=== PATIENT | female | born 2000 | race Caucasian/White ===

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

== ENCOUNTER 2019-08-13 15:21 | Emergency (ER) | payer MEDICAID, OTHER ==
[2019-08-13] MEDS ORDERED: KETOROLAC TROMETHAMINE INJ/PF 30 MG/1 ML SDV IV ONE (16:20)
[2019-08-13] MEDS ORDERED: CAPSAICIN HP 0.075% CREAM 60 GM TP ONE (16:20)
[2019-08-13] MEDS ORDERED: NORMAL SALINE 1000 ML 1,000 ML IV ONE (16:20)
[2019-08-13] MEDS ORDERED: METOCLOPRAMIDE HCL INJ/PF 10 MG/2 ML SDV IV ONE (16:20)
--- NOTE | 2019-08-13 16:22 | ER Document Report ---
ED Medical Screen (RME) - General Chief Complaint: Abdominal Pain Stated Complaint: ABDOMINAL PAIN Time Seen by Provider: 08/13/19 16:15 Mode of Arrival: Wheelchair Information source: Patient Notes: 19-year-old female with history of cannabis hyperemesis presents to the emergency department with same symptoms. Patient reports her back is hurting her as well as her stomach. Patient reports she is still smoking marijuana but not as much. Denies fever. Patient looks extremely uncomfortable. I have greeted and performed a rapid initial assessment of this patient. A comprehensive ED assessment and evaluation of the patient, analysis of test results and completion of the medical decision making process will be conducted by additional ED providers. TRAVEL OUTSIDE OF THE [place] IN LAST 30 DAYS: No - Related Data Allergies/Adverse Reactions: haloperidol [From Haldol] Allergy (Verified 02/26/19 11:30) Past Medical History - Social History Chew tobacco use (# tins/day): No Drug Abuse: Marijuana Neurological Medical History: Reports: Hx Seizures - WITH HALDOL WHEN GIVEN IN ER Renal/ Medical History: Denies: Hx Peritoneal Dialysis GI Medical History: Reports: Hx Gastroesophageal Reflux Disease, Hx Irritable Bowel, Hx Ulcer Psychiatric Medical History: Reports: Hx Anxiety, Hx Depression Past Surgical History: Reports: Hx Cholecystectomy, Other - Upper GI scope-2 esophogeal ulcerations measuring >5mm. Denies: Hx Hysterectomy - Immunizations Immunizations up to date: Yes Hx Diphtheria, Pertussis, Tetanus Vaccination: Yes Physical Exam - Vital signs Vitals: Temp Pulse Resp BP Pulse Ox 98.3 F 83 22 H 126/78 H 100 08/13/19 15:35 08/13/19 15:35 08/13/19 15:35 08/13/19 15:35 08/13/19 15:35 Course - Vital Signs Vital signs: Temp Pulse Resp BP Pulse Ox 98.3 F 83 22 H 126/78 H 100 08/13/19 15:35 08/13/19 15:35 08/13/19 15:35 08/13/19 15:35 08/13/19 15:35
[2019-08-13] MEDS ORDERED: CAPSAICIN 0.025% CREAM 60 GM TP ONE (16:54)
[2019-08-13 17:09] LABS: ABSOLUTE LYMPHOCYTES (AUTO) 0.8 10^3/uL (0.5-4.7); ABSOLUTE MONOCYTES (AUTO) 0.3 10^3/uL (0.1-1.4); ABSOLUTE NEUT (AUTO) 13.5 10^3/uL (1.7-8.2); BASOPHILS % (AUTO) 0.2 % (0-2); HEMOGLOBIN 13.1 g/dL (12.0-15.5); LYMPHOCYTES % (AUTO) 5.6 % (13-45); MEAN CORPUSCULAR HEMOGLOBIN 27.7 pg (27.0-33.4); MEAN CORPUSCULAR HGB CONC 33.6 g/dL (32.0-36.0); MEAN CORPUSCULAR VOLUME 83 fl (80-97); MONOCYTES % (AUTO) 2.4 % (3-13); PLATELET COUNT 298 10^3/uL (150-450); RED BLOOD COUNT 4.73 10^6/uL (3.72-5.28); RED CELL DISTRIBUTION WIDTH 15.4 % (11.5-14.0); SEGMENTED NEUTROPHILS % (AUTO) 91.8 % (42-78); TOTAL CELLS COUNTED % (AUTO) 100 %; WHITE BLOOD COUNT 14.7 10^3/uL (4.0-10.5)
[2019-08-13 17:31] LABS: ALBUMIN 4.5 g/dL (3.5-5.0); ALKALINE PHOSPHATASE 92 U/L (38-126); ANION GAP 12 (5-19); ASPARTATE AMINO TRANSFERASE 24 U/L (14-36); BILIRUBIN,DIRECT 0.1 mg/dL (0.0-0.4); BILIRUBIN,TOTAL 0.2 mg/dL (0.2-1.3); BLOOD UREA NITROGEN 4 mg/dL (7-20); CALCIUM 10.2 mg/dL (8.4-10.2); CARBON DIOXIDE 25 mmol/L (22-30); CHLORIDE 103 mmol/L (98-107); GLUCOSE 110 mg/dL (75-110); POTASSIUM 3.5 mmol/L (3.6-5.0); TOTAL PROTEIN 7.8 g/dL (6.3-8.2)
[2019-08-13 18:03] LABS: APPEARANCE,URINE CLEAR; BILIRUBIN,URINE NEGATIVE (NEGATIVE); COLOR,URINE STRAW; GLUCOSE, URINE NEGATIVE (NEGATIVE); KETONES,URINE NEGATIVE (NEGATIVE); LEUKOCYTE ESTERASE,URINE NEGATIVE (NEGATIVE); NITRITE,URINE NEGATIVE (NEGATIVE); PROTEIN,URINE NEGATIVE (NEGATIVE); URINE SPECIFIC GRAVITY 1.003; UROBILINOGEN,URINE NEGATIVE mg/dL (<2.0)
--- NOTE | 2019-08-13 19:03 | ER Document Report ---
HPI - HPI Time Seen by Provider: 08/13/19 16:15 Pain Level: Denies Notes: 19-year-old female with history of cannabis hyperemesis presents to the emergency department with same symptoms. Patient reports her back is hurting her as well as her stomach. Patient reports she is still smoking marijuana but not as much. Denies fever. - REPRODUCTIVE Reproductive: DENIES: : Past Medical History - General Information source: Patient - Social History Smoking Status: Never Smoker Chew tobacco use (# tins/day): No Drug Abuse: Marijuana Family History: Reviewed & Not Pertinent, Other - Obesity, diabetes, fatty liver disease, gallbladder disease. Patient has suicidal ideation: No Patient has homicidal ideation: No Neurological Medical History: Reports: Hx Seizures - WITH HALDOL WHEN GIVEN IN ER Renal/ Medical History: Denies: Hx Peritoneal Dialysis GI Medical History: Reports: Hx Gastroesophageal Reflux Disease, Hx Irritable Bowel, Hx Ulcer Psychiatric Medical History: Reports: Hx Anxiety, Hx Depression Past Surgical History: Reports: Hx Cholecystectomy, Other - Upper GI scope-2 esophogeal ulcerations measuring >5mm. Denies: Hx Hysterectomy - Immunizations Immunizations up to date: Yes Hx Diphtheria, Pertussis, Tetanus Vaccination: Yes Vertical Provider Document - CONSTITUTIONAL Notes: PHYSICAL EXAMINATION: GENERAL: Well-appearing, well-nourished and in no acute distress. HEAD: Atraumatic, normocephalic. EYES: Pupils equal round and reactive to light, extraocular movements intact, conjunctiva are normal. ENT: Nares patent, oropharynx clear without exudates. Moist mucous membranes. NECK: Normal range of motion, supple without lymphadenopathy LUNGS: Breath sounds clear to auscultation bilaterally and equal. No wheezes rales or rhonchi. HEART: Regular rate and rhythm without murmurs ABDOMEN: Soft, nontender, nondistended abdomen. No guarding, no rebound. No masses appreciated. Female : deferred Musculoskeletal: Normal range of motion, no pitting or edema. No cyanosis. NEUROLOGICAL: Cranial nerves grossly intact. Normal speech, normal gait. Normal sensory, motor exams PSYCH: Normal mood, normal affect. SKIN: Warm, Dry, normal turgor, no rashes or lesions noted. - INFECTION CONTROL TRAVEL OUTSIDE OF THE [place] IN LAST 30 DAYS: No Course - Re-evaluation Re-evalutation: Laboratory 0108/13/19 08/13/19 16:31 16:31 17:43 WBC 14.7 H RBC 4.73 Hgb 13.1 Hct 39.0 MCV 83 MCH 27.7 MCHC 33.6 RDW 15.4 H Plt Count 298 Lymph % (Auto) 5.6 L [place] % (Auto) 2.4 L Eos % (Auto) 0.0 Baso % (Auto) 0.2 Absolute Neuts (auto) 13.5 H Absolute Lymphs (auto) 0.8 Absolute Monos (auto) 0.3 Absolute Eos (auto) 0.0 Absolute Basos (auto) 0.0 Seg Neutrophils % 91.8 H Sodium 139.6 Potassium 3.5 L Chloride 103 Carbon Dioxide 25 Anion Gap 12 BUN 4 L Creatinine 0.64 Est GFR ( Amer) > 60 Est GFR (MDRD) Non-Af > 60 Glucose 110 Calcium 10.2 Total Bilirubin 0.2 Direct Bilirubin 0.1 Neonat Total Bilirubin Not Reportable Neonat Direct Bilirubin Not Reportable Neonat Indirect Bili Not Reportable AST 24 ALT 16 Alkaline Phosphatase 92 Total Protein 7.8 Albumin 4.5 Urine Color STRAW Urine Appearance CLEAR Urine pH 6.0 Ur Specific [place] 1.003 Urine Protein NEGATIVE Urine Glucose (UA) NEGATIVE Urine Ketones NEGATIVE Urine Blood LARGE H Urine Nitrite NEGATIVE Urine Bilirubin NEGATIVE Urine Urobilinogen NEGATIVE Ur Leukocyte Esterase NEGATIVE Urine WBC (Auto) 2 Urine RBC (Auto) 3 Urine Bacteria (Auto) TRACE Squamous Epi Cells Auto 1 Urine Mucus (Auto) RARE Urine Ascorbic Acid NEGATIVE Urine HCG, Qual NEGATIVE Work-up today has been relatively unremarkable. Patient does have a mildly elevated white blood count however that is likely secondary to vomiting. Tay vaughn has not vomited since she was given antiemetics here in the emergency department. Her abdomen is soft and nontender. Likely vomiting due to hyperemesis cannabinoid syndrome. Patient reports feels much improved after administration of medications and IV fluids today. Patient will be discharged home in stable condition at this time. - Vital Signs Vital signs: Temp Pulse Resp BP Pulse Ox 98.3 F 83 22 H 126/78 H 100 08/13/19 15:35 08/13/19 15:35 08/13/19 15:35 08/13/19 15:35 08/13/19 15:35 - Laboratory Result Diagrams: 08/13/19 16:31 08/13/19 16:31 Laboratory results interpreted by me: 08/13/19 08/13/19 08/13/19 16:31 16:31 17:43 WBC 14.7 H RDW 15.4 H Lymph % (Auto) 5.6 L [place] % (Auto) 2.4 L Absolute Neuts (auto) 13.5 H Seg Neutrophils % 91.8 H Potassium 3.5 L BUN 4 L Urine Blood LARGE H Discharge - Discharge Clinical Impression: Cannabinoid hyperemesis syndrome Condition: Stable Disposition: HOME, SELF-CARE Additional Instructions: You were seen in the emergency department today with an episode of your cannabinoid hyperemesis syndrome. Please stop smoking marijuana. This is the likely culprit of all of your symptoms. Please take antinausea medication as prescribed. Please follow-up with primary care. Prescriptions: Capsaicin [Capzasin Patch] 1 patch TP DAILY #1 pkg Ondansetron [Zofran Odt 4 mg Tablet] 1 - 2 tab PO Q4H PRN #15 tab.rapdis PRN Reason: For Nausea/Vomiting
[2019-08-13 19:18] VITALS: BP 123/63
== END 2019-08-13 19:18 | disposition home or self-care (01) ==
LOC: ER 15:21
DX: F12.188 Cannabis abuse with other cannabis-induced disorder (principal); R11.10 Vomiting, unspecified; M54.9 Dorsalgia, unspecified
CPT/HCPCS: 99284; 96361; 96374; 96375; 36415; 85025; 81025; 80053; 81001; J3490 ×2; J1885; J2765; J7030

== ENCOUNTER 2019-09-09 16:34 | Emergency (ER) | payer MEDICAID, OTHER ==
[2019-09-09] MEDS ORDERED: METOCLOPRAMIDE HCL INJ/PF 10 MG/2 ML SDV IV ONE (17:54)
--- NOTE | 2019-09-09 17:54 | ER Document Report ---
ED Medical Screen (RME) - General Chief Complaint: Abdominal Pain Stated Complaint: ABDOMINAL PAIN Time Seen by Provider: 09/09/19 17:53 TRAVEL OUTSIDE OF THE [place] IN LAST 30 DAYS: No - HPI Notes: 09/09/19 17:53 Patient is a 19-year-old female who presents complaining of acute on chronic mid abdominal pain. Patient states that this is in the same area as it has been for years. Patient states that she has had nausea vomiting. She states that she only comes in when the pain gets intolerable. Pain does not radiate. She is urinating normally. Denies . No fever, chest pain, shortness of breath, diarrhea. I have treated and performed a rapid initial assessment of this patient. A comprehensive ED assessment and evaluation of the patient, analysis of test results and completion of medical decision making process will be conducted by additional ED providers. PHYSICAL EXAMINATION: GENERAL: Well-appearing, well-nourished and in no acute distress. A&Ox4. Answers questions appropriately. - Related Data Allergies/Adverse Reactions: haloperidol [From Haldol] Allergy (Verified 02/26/19 11:30) Past Medical History Neurological Medical History: Reports: Hx Seizures - WITH HALDOL WHEN GIVEN IN ER Renal/ Medical History: Denies: Hx Peritoneal Dialysis GI Medical History: Reports: Hx Gastroesophageal Reflux Disease, Hx Irritable Bowel, Hx Ulcer Psychiatric Medical History: Reports: Hx Anxiety, Hx Depression Past Surgical History: Reports: Hx Cholecystectomy, Other - Upper GI scope-2 esophogeal ulcerations measuring >5mm. Denies: Hx Hysterectomy - Immunizations Immunizations up to date: Yes Hx Diphtheria, Pertussis, Tetanus Vaccination: Yes Physical Exam - Vital signs Vitals: Temp Pulse Resp BP Pulse Ox 98.2 F 86 16 132/70 H 95 09/09/19 17:04 09/09/19 17:04 09/09/19 17:04 09/09/19 17:04 09/09/19 17:04 Course - Vital Signs Vital signs: Temp Pulse Resp BP Pulse Ox 98.2 F 86 16 132/70 H 95 09/09/19 17:04 09/09/19 17:04 09/09/19 17:04 09/09/19 17:04 09/09/19 17:04
[2019-09-09] MEDS: NORMAL SALINE 1000 ML 1,000 ML IV PRN ×2 (18:36→19:36)
[2019-09-09 19:07] LABS: ABSOLUTE LYMPHOCYTES (AUTO) 1.3 10^3/uL (0.5-4.7); ABSOLUTE MONOCYTES (AUTO) 0.5 10^3/uL (0.1-1.4); ABSOLUTE NEUT (AUTO) 7.1 10^3/uL (1.7-8.2); BASOPHILS % (AUTO) 0.2 % (0-2); HEMATOCRIT 39.5 % (36.0-47.0); HEMOGLOBIN 13.4 g/dL (12.0-15.5); LYMPHOCYTES % (AUTO) 14.9 % (13-45); MEAN CORPUSCULAR HEMOGLOBIN 27.7 pg (27.0-33.4); MEAN CORPUSCULAR HGB CONC 33.8 g/dL (32.0-36.0); MEAN CORPUSCULAR VOLUME 82 fl (80-97); MONOCYTES % (AUTO) 5.2 % (3-13); PLATELET COUNT 298 10^3/uL (150-450); RED BLOOD COUNT 4.82 10^6/uL (3.72-5.28); RED CELL DISTRIBUTION WIDTH 15.7 % (11.5-14.0); SEGMENTED NEUTROPHILS % (AUTO) 79.7 % (42-78); TOTAL CELLS COUNTED % (AUTO) 100 %; WHITE BLOOD COUNT 8.9 10^3/uL (4.0-10.5)
[2019-09-09 19:10] LABS: APPEARANCE,URINE CLOUDY; BILIRUBIN,URINE NEGATIVE (NEGATIVE); COLOR,URINE AMBER; GLUCOSE, URINE NEGATIVE (NEGATIVE); KETONES,URINE 20 mg/dL (NEGATIVE); PROTEIN,URINE 100 mg/dL (NEGATIVE); URINE SPECIFIC GRAVITY 1.029
[2019-09-09 19:27] LABS: ALBUMIN 4.2 g/dL (3.5-5.0); ALKALINE PHOSPHATASE 87 U/L (38-126); ANION GAP 11 (5-19); ASPARTATE AMINO TRANSFERASE 27 U/L (14-36); BILIRUBIN,DIRECT 0.2 mg/dL (0.0-0.4); BILIRUBIN,TOTAL 0.4 mg/dL (0.2-1.3); BLOOD UREA NITROGEN 7 mg/dL (7-20); CALCIUM 9.5 mg/dL (8.4-10.2); CARBON DIOXIDE 23 mmol/L (22-30); CHLORIDE 105 mmol/L (98-107); GLUCOSE 103 mg/dL (75-110); POTASSIUM 3.5 mmol/L (3.6-5.0); TOTAL PROTEIN 7.7 g/dL (6.3-8.2)
--- NOTE | 2019-09-09 19:56 | ER Document Report ---
ED General - General Chief Complaint: Abdominal Pain Stated Complaint: ABDOMINAL PAIN Time Seen by Provider: 09/09/19 17:53 Primary Care Provider: FAVIOLA LAYTON PA-C [Primary Care Provider] - Follow up as needed Notes: Patient is a 19-year-old white female with a past medical history significant for chronic abdominal pain who is status post cholecystectomy who presents to the emergency department the chief complaint of acute on chronic abdominal pain. She states it is in the supraumbilical/epigastric region. Describes it as "deep". She states is associated with intermittent nausea vomiting and diarrhea. States her nausea and vomiting are relieved by ODT Zofran. She reports she gets these episodes from time to time. She is unsure why. She denies any fall, injury or trauma. Denies any urinary complaints, vaginal bleeding or discharge. Denies any known fever, chills or night sweats. TRAVEL OUTSIDE OF THE [place] IN LAST 30 DAYS: No - Related Data Allergies/Adverse Reactions: haloperidol [From Haldol] Allergy (Verified 02/26/19 11:30) Home Medications: zofran Past Medical History - Social History Smoking Status: Never Smoker Frequency of alcohol use: None Drug Abuse: None, Marijuana Family History: Reviewed & Not Pertinent, Other - Obesity, diabetes, fatty liver disease, gallbladder disease. Patient has suicidal ideation: No Patient has homicidal ideation: No Neurological Medical History: Reports: Hx Seizures - WITH HALDOL WHEN GIVEN IN ER Renal/ Medical History: Denies: Hx Peritoneal Dialysis GI Medical History: Reports: Hx Gastroesophageal Reflux Disease, Hx Irritable Bowel, Hx Ulcer Psychiatric Medical History: Reports: Hx Anxiety, Hx Depression Past Surgical History: Reports: Hx Cholecystectomy, Other - Upper GI scope-2 esophogeal ulcerations measuring >5mm. Denies: Hx Hysterectomy - Immunizations Immunizations up to date: Yes Hx Diphtheria, Pertussis, Tetanus Vaccination: Yes Review of Systems - Review of Systems Gastrointestinal: Abdominal pain, Diarrhea, Nausea, Vomiting -: Yes All other systems reviewed and negative Physical Exam - Vital signs Vitals: Temp Pulse Resp BP Pulse Ox 98.2 F 86 16 132/70 H 95 09/09/19 17:04 09/09/19 17:04 09/09/19 17:04 09/09/19 17:04 09/09/19 17:04 - General General appearance: Appears well, Alert In distress: None - HEENT Head: Normocephalic, Atraumatic Eyes: Normal Pupils: PERRL Ears: Normal External canal: Normal Tympanic membrane: Normal Sinus: Normal Nasal: Normal Mouth/Lips: Normal Mucous membranes: Normal Pharynx: Normal Neck: Normal - Respiratory Respiratory status: No respiratory distress Chest status: Nontender Breath sounds: Normal Chest palpation: Normal - Cardiovascular Rhythm: Regular Heart sounds: Normal auscultation - Abdominal Inspection: Normal Distension: No distension Bowel sounds: Normal Tenderness: Tender - Epigastric region Organomegaly: No organomegaly - Back Back: No: CVA tenderness - Neurological Neuro grossly intact: Yes Cognition: Normal Orientation: AAOx4 Nic Coma Scale Eye Opening: Spontaneous [place] Coma Scale Verbal: Oriented Nic Coma Scale Motor: Obeys Commands Nic Coma Scale Total: 15 Speech: Normal - Psychological Associated symptoms: Normal affect, Normal mood - Skin Skin Temperature: Warm Skin Moisture: Dry Skin Color: Normal Course - Re-evaluation Re-evalutation: 09/09/19 20:46 CT scan negative for acute process per radiologist. Patient's urine consistent with a hemorrhagic cystitis. She received Rocephin here, sent home with a prescription for Keflex. Counseled her regarding the importance of outpatient follow-up with her primary doctor in 2 to 3 days for reevaluation. Advise she return here or any ER immediately with any new, persistent or worsening symptoms. She verbalized understood and agreed. - Vital Signs Vital signs: Temp Pulse Resp BP Pulse Ox 98.2 F 86 16 132/70 H 95 09/09/19 17:04 09/09/19 17:04 09/09/19 17:04 09/09/19 17:04 09/09/19 17:04 - Laboratory Result Diagrams: 09/09/19 18:35 09/09/19 18:35 Laboratory results interpreted by me: 09/09/19 09/09/19 09/09/19 18:25 18:35 18:35 RDW 15.7 H Seg Neutrophils % 79.7 H Potassium 3.5 L Urine Protein 100 H Urine Ketones 20 H Urine Blood LARGE H Urine Urobilinogen 2.0 H Leukocyte Esterase Rfl MODERATE H Discharge - Discharge Clinical Impression: Hemorrhagic cystitis Condition: Stable Disposition: HOME, SELF-CARE Instructions: Hematuria ([facility]), Urinary Tract Infection ([facility]) Additional Instructions: Follow-up with your regular doctor in 2 to 3 days for reevaluation. Return here or any ER immediately with any new, persistent or worsening symptoms. Prescriptions: Cephalexin Monohydrate [Keflex 500 mg Capsule] 500 mg PO Q6H 10 Days #40 capsule Referrals: FAVIOLA LAYTON PA-C [Primary Care Provider] - Follow up as needed
[2019-09-09] MEDS ORDERED: CEFTRIAXONE 1 GM/D5W RTU 1 GM/50 ML RTUPB IV ONE (20:15)
--- NOTE | 2019-09-09 20:31 | RADIOLOGY REPORT (SQ) ---
EXAM DESCRIPTION: CT abdomen and pelvis without contrast CLINICAL HISTORY: 19 years Female, abd pain, hematuria COMPARISON: CT abdomen and pelvis 06/25/2016 TECHNIQUE: Axial images of the abdomen and pelvis were performed without the use of intravenous contrast, with sagittal and coronal reformatted images. This exam was performed according to our departmental dose-optimization program which includes use of Automated Exposure Control, adjustment of the mA and/or kV according to patient size and/or use of iterative reconstruction technique. FINDINGS: No hydronephrosis or urinary stone. Evaluation of the renal parenchyma is limited, due to the lack of intravenous contrast. There is no gross evidence of renal mass. The urinary bladder is not well distended, but is grossly unremarkable. The appendix appears normal. The patient has had a cholecystectomy. There is no significant radiographic abnormality of the liver, spleen, pancreas or adrenal glands. No mass or adenopathy. No free air or free fluid. IMPRESSION: No acute finding. The cause of the patient's hematuria has not been identified, and further clinical evaluation is warranted.
[2019-09-09 20:52] VITALS: BP 100/86
== END 2019-09-09 20:52 | disposition home or self-care (01) ==
LOC: ER 16:34
DX: N30.90 Cystitis, unspecified without hematuria (principal); R10.13 Epigastric pain; R10.816 Epigastric abdominal tenderness; R19.7 Diarrhea, unspecified; R11.2 Nausea with vomiting, unspecified; Z79.899 Other long term (current) drug therapy; Z87.19 Personal history of other diseases of the digestive system; Z90.49 Acquired absence of other specified parts of digestive tract; Z88.8 Allergy status to other drugs, medicaments and biological substances
CPT/HCPCS: 99284; 96361; 96375; 96365; 36415; 83690; 85025; 81025; 80053; 81001; 74176; J2765; J7030; J0696

== ENCOUNTER 2019-10-06 09:01 | Emergency (ER) | payer MEDICAID ==
[2019-10-06] MEDS ORDERED: NORMAL SALINE 1000 ML 1,000 ML IV ONE (09:10)
[2019-10-06] MEDS ORDERED: KETOROLAC TROMETHAMINE INJ/PF 30 MG/1 ML SDV IV ONE (09:10)
[2019-10-06] MEDS ORDERED: CAPSAICIN HP 0.075% CREAM 60 GM TP ONE (09:10)
[2019-10-06] MEDS ORDERED: METOCLOPRAMIDE HCL INJ/PF 10 MG/2 ML SDV IV ONE (09:10)
[2019-10-06] MEDS ORDERED: LIDOCAINE 5% (700 MG) TRANSDERMAL ADH..PATCH TP ONE (09:17)
[2019-10-06] MEDS ORDERED: DIPHENHYDRAMINE HCL 50 MG/ML VIAL IV ONE (09:17)
--- NOTE | 2019-10-06 09:22 | ER Document Report ---
ED Medical Screen (RME) - General Chief Complaint: Abdominal Pain Stated Complaint: ABDOMINAL PAIN Time Seen by Provider: 10/06/19 09:06 Primary Care Provider: FAVIOLA LAYTON PA-C [Primary Care Provider] - Follow up as needed Mode of Arrival: Medic Information source: Patient Notes: This 19-year-old female with history of cyclic vomiting from marijuana abuse presents to the emergency department with complaints of generalized abdominal pain, vomiting, diarrhea, and back pain since Friday. Patient reports she cannot get comfortable. She denies fever, denies pain with void. Denies . Denies vaginal discharge. Patient is ambulating around the room scratching her back with a fork. She was cautioned that this could cause damage to her back. No open wounds noted. Patient reports scratching her back with a fork is the only thing that helps the pain. Respiratory rate even unlabored. Patient looks very uncomfortable, sweating and pale, which is her usual presentation. I have greeted and performed a rapid initial assessment of this patient. A comprehensive ED assessment and evaluation of the patient, analysis of test results and completion of the medical decision making process will be conducted by additional ED providers. TRAVEL OUTSIDE OF THE [place] IN LAST 30 DAYS: No - Related Data Allergies/Adverse Reactions: haloperidol [From Haldol] Allergy (Verified 02/26/19 11:30) Past Medical History Neurological Medical History: Reports: Hx Seizures - WITH HALDOL WHEN GIVEN IN ER Renal/ Medical History: Denies: Hx Peritoneal Dialysis GI Medical History: Reports: Hx Gastroesophageal Reflux Disease, Hx Irritable Bowel, Hx Ulcer Psychiatric Medical History: Reports: Hx Anxiety, Hx Depression Past Surgical History: Reports: Hx Cholecystectomy, Other - Upper GI scope-2 esophogeal ulcerations measuring >5mm. Denies: Hx Hysterectomy - Immunizations Immunizations up to date: Yes Hx Diphtheria, Pertussis, Tetanus Vaccination: Yes Doctor's Discharge - Discharge Referrals: FAVIOLA LAYTON PA-C [Primary Care Provider] - Follow up as needed
[2019-10-06 10:18] LABS: ABSOLUTE MONOCYTES (AUTO) 0.6 10^3/uL (0.1-1.4); ABSOLUTE NEUT (AUTO) 17.3 10^3/uL (1.7-8.2); BASOPHILS % (AUTO) 0.2 % (0-2); HEMATOCRIT 40.5 % (36.0-47.0); HEMOGLOBIN 13.7 g/dL (12.0-15.5); LYMPHOCYTES % (AUTO) 5.2 % (13-45); MEAN CORPUSCULAR HGB CONC 33.7 g/dL (32.0-36.0); MEAN CORPUSCULAR VOLUME 83 fl (80-97); PLATELET COUNT 315 10^3/uL (150-450); RED BLOOD COUNT 4.89 10^6/uL (3.72-5.28); SEGMENTED NEUTROPHILS % (AUTO) 91.6 % (42-78); TOTAL CELLS COUNTED % (AUTO) 100 %; WHITE BLOOD COUNT 18.9 10^3/uL (4.0-10.5)
[2019-10-06 10:28] LABS: A TYPE INFLUENZA AG NEGATIVE (NEGATIVE); B INFLUENZA AG NEGATIVE (NEGATIVE)
[2019-10-06 10:32] LABS: ALBUMIN 4.5 g/dL (3.5-5.0); ALKALINE PHOSPHATASE 87 U/L (38-126); ANION GAP 12 (5-19); ASPARTATE AMINO TRANSFERASE 25 U/L (14-36); BILIRUBIN,DIRECT 0.1 mg/dL (0.0-0.4); BILIRUBIN,TOTAL 0.6 mg/dL (0.2-1.3); BLOOD UREA NITROGEN 6 mg/dL (7-20); CALCIUM 9.6 mg/dL (8.4-10.2); CARBON DIOXIDE 21 mmol/L (22-30); CHLORIDE 106 mmol/L (98-107); GLUCOSE 150 mg/dL (75-110); POTASSIUM 3.5 mmol/L (3.6-5.0); TOTAL PROTEIN 7.6 g/dL (6.3-8.2)
[2019-10-06 10:47] LABS: APPEARANCE,URINE TURBID; BILIRUBIN,URINE NEGATIVE (NEGATIVE); GLUCOSE, URINE NEGATIVE (NEGATIVE); KETONES,URINE 20 mg/dL (NEGATIVE); LEUKOCYTE ESTERASE,URINE SMALL (NEGATIVE); NITRITE,URINE NEGATIVE (NEGATIVE); PROTEIN,URINE 30 mg/dL (NEGATIVE); URINE SPECIFIC GRAVITY 1.027
[2019-10-06 10:51] LABS: URINE AMPHETAMINES SCREEN NEGATIVE; URINE BARBITURATES SCREEN NEGATIVE; URINE BENZODIAZEPINES SCREEN NEGATIVE; URINE COCAINE SCREEN NEGATIVE; URINE METHADONE SCREEN NEGATIVE; URINE PHENCYCLIDINE SCREEN NEGATIVE
[2019-10-06 10:52] LABS: URINE MARIJUANA (THC) SCREEN UNCONFIRMED POSITIVE
[2019-10-06 10:55] LABS: ADD MANUAL MICROSCOPIC YES; COLOR,URINE DARK YELLOW
[2019-10-06 10:56] LABS: BACTERIA,URINE 3+ /HPF
[2019-10-06] MEDS ORDERED: NORMAL SALINE 1000 ML 1,000 ML IV PRN (11:14)
--- NOTE | 2019-10-06 11:20 | ER Document Report ---
ED General - General Chief Complaint: Vomiting Stated Complaint: ABDOMINAL PAIN Time Seen by Provider: 10/06/19 09:06 Primary Care Provider: FAVIOLA LAYTON PA-C [Primary Care Provider] - Follow up as needed Mode of Arrival: Medic TRAVEL OUTSIDE OF THE [place] IN LAST 30 DAYS: No - HPI Notes: Chief complaint: Vomiting and abdominal cramping 19-year-old female frequent visitor to this emergency department with longstanding history of cannabis hyperemesis syndrome. Patient says she has "cut down" on her use of cannabis but continues to smoke. Back with recurrence of similar symptoms as per multiple prior visits. No fever. No hematemesis. - Related Data Allergies/Adverse Reactions: haloperidol [From Haldol] Allergy (Verified 10/06/19 09:19) Past Medical History - General Information source: Patient - Social History Smoking Status: Never Smoker Chew tobacco use (# tins/day): No Drug Abuse: None Family History: Reviewed & Not Pertinent, Other - Obesity, diabetes, fatty liver disease, gallbladder disease. Patient has suicidal ideation: No Patient has homicidal ideation: No Neurological Medical History: Reports: Hx Seizures - WITH HALDOL WHEN GIVEN IN ER Renal/ Medical History: Denies: Hx Peritoneal Dialysis GI Medical History: Reports: Hx Gastroesophageal Reflux Disease, Hx Irritable B owel, Hx Ulcer Psychiatric Medical History: Reports: Hx Anxiety, Hx Depression Past Surgical History: Reports: Hx Cholecystectomy, Other - Upper GI scope-2 esophogeal ulcerations measuring >5mm. Denies: Hx Hysterectomy - Immunizations Immunizations up to date: Yes Hx Diphtheria, Pertussis, Tetanus Vaccination: Yes Review of Systems - Review of Systems Notes: Constitutional: Negative for fever. HENT: Negative for sore throat. Eyes: Negative for visual changes. Cardiovascular: Negative for chest pain. Respiratory: Negative for shortness of breath. Gastrointestinal: As per HPI. Genitourinary: Negative for dysuria. Musculoskeletal: Negative for back pain. Skin: Negative for rash. Neurological: Negative for headaches, weakness or numbness. 10 point ROS negative except as marked above and in HPI. Physical Exam - Notes Notes: GENERAL: Mildly obese female appearing approximately stated age. Patient was actively vomiting when she came in but was relatively comfortable at the time of my exam. SKIN: Good turgor no rashes. HEAD: Normocephalic atraumatic. EYES: PERRLA. EOMI. Conjunctivae and sclerae clear. EARS: CANALS AND TMS CLEAR. NOSE: CLEAR. MOUTH: Moist mucosa. Good dentition. No stridor or edema. No drooling. NECK: Supple. No masses or thyromegaly. No adenopathy. Carotids 2+ without bruits. No JVD. BACK: Symmetrical without tenderness. CHEST: Respirations unlabored. Breath sounds clear and symmetrical. HEART: Regular rhythm. No murmur gallop or rub. ABDOMEN: Soft nontender without masses, organomegaly or rebound. Bowel sounds normally active. No bruits. GENITALIA: Deferred. EXTREMITIES: No edema. No calf tenderness. Cap refill less than 1.5 seconds. Dorsalis pedis and posterior tibial pulses 3+ and symmetrical. NEUROLOGICAL: GCS 15. Alert and oriented x3. Normal gait. Fluent speech. Cr anial nerves II through XII intact. Sensorimotor and cerebellar normal. Normal tone. PSYCHIATRIC: Appropriate affect. Course - Re-evaluation Re-evalutation: 10/06/19 11:17 Patient received Zofran and IV normal saline here. Her abdominal exam here is completely benign. Her white count is elevated 18,000 but looking back through past records she frequently exhibits leukocytosis when she has these acute episodes of vomiting. I clearly DO NOT think she has a surgical abdomen. I talked with her again about importance of abstinence from cannabis. We will give her another liter of fluid for hydration and and anticipate discharge home. - Laboratory Result Diagrams: 10/06/19 09:45 10/06/19 09:45 Laboratory results interpreted by me: 10/06/19 10/06/19 10/06/19 09:45 09:45 09:45 WBC 18.9 H RDW 16.0 H Lymph % (Auto) 5.2 L Absolute Neuts (auto) 17.3 H Seg Neutrophils % 91.6 H Potassium 3.5 L Carbon Dioxide 21 L BUN 6 L Glucose 150 H Urine Protein 30 H Urine Ketones 20 H Urine Blood LARGE H Urine Urobilinogen 2.0 H Ur Leukocyte Esterase SMALL H Discharge - Discharge Clinical Impression: Cannabis hyperemesis syndrome concurrent with and due to cannabis abuse Condition: Stable Disposition: HOME, SELF-CARE Additional Instructions: Abstain from all use of cannabis. Return here as needed for new or worsening symptoms. Prescriptions: Ondansetron [Zofran Odt 4 mg Tablet] 1 - 2 tab PO Q4H PRN #15 tab.rapdis PRN Reason: For Nausea/Vomiting Referrals: FAVIOLA LAYTON PA-C [Primary Care Provider] - Follow up as needed
[2019-10-06 12:41] VITALS: BP 118/68
== END 2019-10-06 12:39 | disposition home or self-care (01) ==
LOC: ER 09:01
DX: R11.10 Vomiting, unspecified (principal); F12.188 Cannabis abuse with other cannabis-induced disorder; R10.9 Unspecified abdominal pain; Z90.49 Acquired absence of other specified parts of digestive tract
CPT/HCPCS: 99284; 96360; 36415; 83690; 84703; 85025; 80053; 81001; 80307; 87804; J1200; J1885; J2765; J3490 ×2; J7030

== ENCOUNTER 2020-04-27 08:30 | Inpatient (IN) | payer MEDICAID ==
[2020-04-27] MEDS ORDERED: PROMETHAZINE HCL INJ 25 MG/1 ML VIAL ONE (08:45)
[2020-04-27] MEDS ORDERED: NALBUPHINE HCL INJ 10 MG/1 ML AMPULE ONE ×2 (08:46→10:13)
[2020-04-27] MEDS ORDERED: RINGERS SOLUTION,LACTATED 1,000 ML IV PRN (09:04)
[2020-04-27] MEDS ORDERED: RINGERS SOLUTION,LACTATED 1,000 ML IV ONE (09:04)
[2020-04-27] MEDS ORDERED: NITROGLYCERIN 0.4 MG/TAB 25 TAB/BOTTLE ONE (09:25)
[2020-04-27] MEDS ORDERED: LIDOCAINE 1% INJ-PF (10 MG/ML) 30 ML SDV ONE (09:25)
[2020-04-27] MEDS ORDERED: OXYTOCIN/0.9 % SODIUM CHLORIDE 30 UNIT/500 ML RTUINJ ONE (09:25)
[2020-04-27] MEDS ORDERED: OXYTOCIN 10 UNIT/ML VIAL ONE (09:25)
[2020-04-27] MEDS ORDERED: MISOPROSTOL 0.2 MG TABLET ONE (09:25)
[2020-04-27 09:35] LABS: ABSOLUTE MONOCYTES (AUTO) 0.6 10^3/uL (0.1-1.4); ABSOLUTE NEUT (AUTO) 12.1 10^3/uL (1.7-8.2); BASOPHILS % (AUTO) 0.3 % (0-2); EOSINOPHILS % (AUTO) 0.2 % (0-6); HEMATOCRIT 39.1 % (36.0-47.0); HEMOGLOBIN 13.5 g/dL (12.0-15.5); LYMPHOCYTES % (AUTO) 13.3 % (13-45); MEAN CORPUSCULAR HEMOGLOBIN 29.9 pg (27.0-33.4); MEAN CORPUSCULAR HGB CONC 34.5 g/dL (32.0-36.0); MEAN CORPUSCULAR VOLUME 87 fl (80-97); PLATELET COUNT 304 10^3/uL (150-450); RED BLOOD COUNT 4.51 10^6/uL (3.72-5.28); SEGMENTED NEUTROPHILS % (AUTO) 82.2 % (42-78); TOTAL CELLS COUNTED % (AUTO) 100 %; WHITE BLOOD COUNT 14.7 10^3/uL (4.0-10.5)
[2020-04-27] MEDS ORDERED: DIBUCAINE 1% OINTMENT 28 GM TP PRN (09:41)
[2020-04-27] MEDS ORDERED: PSEUDOEPHEDRINE HCL 30 MG TABLET PO PRN (09:41)
[2020-04-27] MEDS ORDERED: BENZOCAINE/MENTHOL AEROSOL SPRAY 56 ML TOP PRN (09:41)
[2020-04-27] MEDS ORDERED: ACETAMINOPHEN WITH CODEINE #3 TABLET PO PRN ×2 (09:41)
[2020-04-27] MEDS ORDERED: DIPH/PERTUSS(ACELL)/TETANUS VAC/PF 0.5 ML SYR (>=10YO) IM PRN (09:41)
[2020-04-27] MEDS ORDERED: MAGNESIUM HYDROXIDE SUSP 30 ML UDCUP PO PRN (09:41)
[2020-04-27] MEDS ORDERED: GLYCERIN/WITCH HAZEL LEAF 1 EACH MED..WIPE TP PRN (09:41)
[2020-04-27] MEDS ORDERED: DIPHENHYDRAMINE HCL 25 MG CAPSULE PO PRN (09:41)
[2020-04-27] MEDS ORDERED: ZOLPIDEM TARTRATE 5 MG TABLET PO PRN (09:41)
[2020-04-27] MEDS ORDERED: PROMETHAZINE HCL INJ 25 MG/1 ML VIAL IV PRN (09:41)
[2020-04-27] MEDS ORDERED: PROMETHAZINE HCL 25 MG SUPP.RECT PR PRN (09:41)
[2020-04-27] MEDS ORDERED: PROMETHAZINE HCL 25 MG TABLET PO PRN (09:41)
[2020-04-27] MEDS ORDERED: MEASLES,MUMPS&RUBELLA VACC/PF 0.5 ML VIAL SUBCUT PRN (09:41)
[2020-04-27] MEDS ORDERED: NA PHOS,M-B/NA PHOS,DI-BA (ADULT) 133 ML ENEMA PR PRN (09:41)
[2020-04-27] MEDS ORDERED: OXYTOCIN/0.9 % SODIUM CHLORIDE 30 UNIT/500 ML RTUINJ IV PRN (09:41)
--- NOTE | 2020-04-27 09:46 | RADIOLOGY REPORT (SQ) ---
EXAM DESCRIPTION: U/S OB LIMITED IMAGES COMPLETED DATE/TIME: 04/27/2020 8:16 am REASON FOR STUDY: no heart tones COMPARISON: None. TECHNIQUE: Limited transabdominal grayscale ultrasound for evaluation of specific requested obstetri germaine parameters. LIMITATIONS: None. FINDINGS: Limited transabdominal images demonstrate single of intrauterine . No hear t tones are obtained. Breech positioning. Cervix is open. IMPRESSION: No heart tones. Trimester of : Second trimester - 13 weeks 1 day to 27 weeks 6 days. COMMENT: Findings were called to Dr. Rothman on 04/27/2020 at 0939 hours Eastern time. TECHNICAL DOCUMENTATION: JOB ID: [id number] 2010 [employer]- All Rights Reserved Reading location - IP/workstation name: [email or web address]
[2020-04-27 09:51] LABS: INTERNATIONAL RATION (INR) 0.88; PROTHROMBIN TIME 12.2 SEC (11.4-15.4)
[2020-04-27 09:52] LABS: PARTIAL THROMBOPLASTIN TIME 26.9 SEC (23.5-35.8)
[2020-04-27 09:54] LABS: ALBUMIN 3.9 g/dL (3.5-5.0); ALKALINE PHOSPHATASE 114 U/L (38-126); ANION GAP 14 (5-19); ASPARTATE AMINO TRANSFERASE 30 U/L (14-36); BILIRUBIN,DIRECT 0.3 mg/dL (0.0-0.4); BILIRUBIN,TOTAL 0.7 mg/dL (0.2-1.3); BLOOD UREA NITROGEN 3 mg/dL (7-20); CALCIUM 9.6 mg/dL (8.4-10.2); CARBON DIOXIDE 16 mmol/L (22-30); CHLORIDE 106 mmol/L (98-107); GLUCOSE 166 mg/dL (75-110); POTASSIUM 3.6 mmol/L (3.6-5.0); URIC ACID 3.6 mg/dL (2.5-6.2)
[2020-04-27] MEDS ORDERED: IBUPROFEN 800 MG TABLET ONE (09:58)
[2020-04-27] MEDS ORDERED: ONDANSETRON HCL INJ/PF 4 MG/2 ML SDV ONE (09:59)
[2020-04-27] MEDS ORDERED: FAMOTIDINE 20 MG TABLET PO SCH (10:00)
[2020-04-27] MEDS ORDERED: PRENATAL VITAMIN W DHA CAPSULE PO SCH (10:00)
[2020-04-27] MEDS ORDERED: FERROUS SULFATE 325 MG TABLET PO SCH (10:00)
[2020-04-27] MEDS ORDERED: SENNOSIDES/DOCUSATE 8.6-50 MG 1 EACH TABLET PO SCH (10:00)
[2020-04-27] MEDS ORDERED: IBUPROFEN 800 MG TABLET PO SCH (10:00)
[2020-04-27] MEDS ORDERED: DOCUSATE SODIUM 100 MG CAPSULE PO SCH (10:00)
--- NOTE | 2020-04-27 11:05 | Delivery Summary ---
Del Sum A-C Datetime Report Generated by CPN: 04/27/2020 11:05 DELIVERY PERSONNEL DELIVERY PERSONNEL: [id number] Delivery Doctor:: Danielle Rothman CNM Labor and Delivery Nurse:: Sharon Kent RNgraphic user interface designer Nurse:: Angela Ross RN Student Observers:: Tara Palencia, Student RN Additional Personnel: : Dr. Luna MATERNAL INFORMATION Delivery Anesthesia: None Medications After Delivery: Pitocin 30 Units in 500ml NS/D5W Delivery QBL: 50 Maternal Complications: None Provider Comments: after confirmation of no FHT by ultrasound, bag of water presenting and pt pushed to deliver body and bag. dr luna at bedside and AROM performed. with help of dr luna, head delivered with baby intact. placenta followed intact with cord. bleeding minimal. mother stable in L_D #6 LABOR SUMMARY EDC: 08/08/2020 00:00 No. Babies in Womb: 1 Attempted: No Labor Anesthesia: None LABOR INFORMATION Reason for Induction: Not Applicable Oxytocin: N/A Group B Beta Strep: Unknown Antibiotics # of Doses: 0 Name of Antibiotic Given: N/A Steroids Given: None Reason Steroids Not Administered: Not Applicable MEMBRANES Membranes Rupture Method: Artificial Rupture of Membranes: 04/27/2020 09:30 Length of Rupture (hr): 0.02 Amniotic Fluid Color: Bloody Amniotic Fluid Amount: Small Amniotic Fluid Odor: None STAGES OF LABOR Stage 3 hr: 0 Stage 3 min: 0 VAGINAL DELIVERY Episiotomy: None Laceration #1: None Laceration Extension #1: N/A Laceration Repair: Not Applicable Sponge Count Correct: N/A Sharps Count Correct: N/A CSECTION DELIVERY Primary Indication: N/A CSection Incidence: N/A Labor: N/A Elective: N/A CSection Incision: N/A BABY A INFORMATION Delivery Date/Time: 04/27/2020 09:31 Method of Delivery: Vaginal Nurse Controlled Delivery: No Born in Route : No : N/A Forceps: N/A Vacuum Extraction: N/A Shoulder Dystocia : No PRESENTATION/POSITION BABY A Presentation: Breech Cephalic Presentation: N/A Breech Presentation: Complete PLACENTA INFORMATION BABY A Placenta Delivery Time : 04/27/2020 09:31 Placenta Method of Delivery: Spontaneous Placenta Status: Delivered INFANT INFORMATION BABY A Gestational Age at Delivery: 25.2 Gestational Status: - <34 Weeks Infant Outcome : Stillborn Infant Sex: Male WEIGHT/LENGTH BABY A Infant Birthweight (gm): 460 Weight (lb): 1 Infant Weight (oz): 0 Infant Length (in): 10.50 Infant Length (cm): 26.67 CORD INFORMATION BABY A No. Cord Vessels: 3 Nuchal Cord : N/A Cord Blood Taken: Yes-For Eval (Mom's Blood Type - or O+) Suction: None BABY B INFORMATION : N/A SIGNATURES Assignment: Ciro Luna MD Signature: with User ID: [email or web address] : with User ID: [email or web address] : I was personally available for consultation and serving as supervising physician for the P.
--- NOTE | 2020-04-27 11:05 | Birth Certificate Data ---
Cert Data Datetime Report Generated by CPN: 04/27/2020 11:05 CERTIFICATE DATA 47a. Care: Yes (04/27/2020 09:09:Sharon Kent RN) 47b. Date of First Visit: 12/27/2019 00:00 (04/27/2020 09:09:Sharon Kent RN) 47c. Date of Last Visit: 04/12/2020 00:00 (04/27/2020 09:09:Sharon Kent RN) 47d. Number of Visits: 6 (04/27/2020 09:09:Sharon Kent RN) 48a. Number of Prev Live Births: 0 (04/27/2020 09:09:Sharon Kent RN) 48b. Now Livin (04/27/2020 09:09:Sharon Kent RN) 48c. Live Births Now : 0 (04/27/2020 09:09:QS system process) 48e. Losses: 0 (04/27/2020 09:09:Sharon Niebuhr, RN) RISK FACTORS IN THIS 49c. Previous Births: 0 (04/27/2020 09:09:Sharon Niebuhr, RN) 49f. Previous Cesareans: 0 (04/27/2020 09:09:Sharon Niebuhr, RN) Mother's Height 50b. Height Inches: 64 (04/27/2020 09:31:QS system process) Mother's Weight 51a. Pre- Weight (lbs): 181 (04/27/2020 09:09:Sharon Kent RN) 51b. Weight at Delivery (lbs): 185 (04/27/2020 09:31:QS system process) Infections Present/Treated Results this Hospital Visit: NONREACTIVE (04/27/2020 09:16:QS system process) Cigarette Smoking Cigarette Smoking: Never Smoker. [id number] (04/27/2020 09:09:Sharon Kent RN) 55a. 3 Months Before Preg - Ci (04/27/2020 09:09:Sharon Kent RN) 55a. Packs: 0 (04/27/2020 09:09:Sharon Kent RN) 55b. 1st Trimester of Preg- Ci (04/27/2020 09:09:Sharon Kent RN) 55b. Packs: 0 (04/27/2020 09:09:Sharon Kent RN) 55c. 2nd Trimester of Preg- Ci (04/27/2020 09:09:Sharon Kent RN) 55c. Packs: 0 (04/27/2020 09:09:Sharon Kent RN) 55d. 3rd Trimester of Preg- Ci (04/27/2020 09:09:Sharon Kent RN) 55d. Packs: 0 (04/27/2020 09:09:Sharon Kent RN) Onset of Labor 56a. PROM >12 Hrs: 0.02 (04/27/2020 09:09:QS system process) 57a. Induction of Labor: N/A (04/27/2020 09:09:Sharon Kent RN) 57c. Non-Vertex Presentation A: N/A (04/27/2020 09:09:JEREMIAH De La Cruz) 57d. Steroids - Lung Mat: None (04/27/2020 09:09:Sharon Kent RN) 57d. Steroids - Lung Mat: Not Applicable (04/27/2020 09:09:Sharon Kent RN) 57g. Moderate/Heavy Meconium: Bloody (04/27/2020 09:09:Sharon Kent RN) 57h. Intolerance of Labor: N/A (04/27/2020 09:09:Sharon Kent RN) 57i. Epidural/Spinal Anesthesia: None (04/27/2020 09:09:Sharon Kent RN) Method of Delivery 58a. Forceps - Unsuccessful A: N/A (04/27/2020 09:09:JEREMIAH De La Cruz) 58b. Vacuum - Unsuccessful A: N/A (04/27/2020 09:09:JEREMIAH De La Cruz) 58c. Presentation at 58c. Presentation at - A : N/A (04/27/2020 09:09:JEREMIAH De La Cruz) 58c. Presentation at - A : Complete (04/27/2020 09:09:JEREMIAH De La Cruz) 58c. Presentation at - A : Breech (04/27/2020 09:09:[facility]) Final Route and Method of Del 58d. Baby A Route/Delivery: Vaginal (04/27/2020 09:09:Sharon Kent RN) 58e. Trial of Labor Attempted: No (04/27/2020 09:09:Sharon Kent RN) 58e. Trial of Labor Attempted A: N/A (04/27/2020 09:09:Sharon Kent RN) 58e. Trial of Labor Attempted B: N/A (04/27/2020 09:09:Sharon Kent RN) Maternal Morbidity 59b. 3rd or 4th Degree Lacs: None (04/27/2020 09:09:Sharon Kent RN) Birthweight Baby A: 460 (04/27/2020 09:09:Sharon Kent RN) 60a. Pounds : 1 (04/27/2020 09::QS system process) 60b. Ounces: 0 (04/27/2020 09::QS system process) 61. GA at Delivery Baby A: 25.2 (04/27/2020 09::Sharon Kent RN) : - <34 Weeks (04/27/2020 09::QS system process)
[2020-04-27 11:25] LABS: BILIRUBIN,URINE NEGATIVE (NEGATIVE); GLUCOSE, URINE 150 mg/dL (NEGATIVE); KETONES,URINE 20 mg/dL (NEGATIVE); LEUKOCYTE ESTERASE,URINE TRACE (NEGATIVE); NITRITE,URINE NEGATIVE (NEGATIVE); PROTEIN,URINE >=500 mg/dL (NEGATIVE); URINE SPECIFIC GRAVITY 1.025; UROBILINOGEN,URINE NEGATIVE mg/dL (<2.0)
[2020-04-27 11:28] LABS: APPEARANCE,URINE TURBID
[2020-04-27 11:29] LABS: COLOR,URINE RED
[2020-04-27 11:34] LABS: URINE AMPHETAMINES SCREEN NEGATIVE; URINE BARBITURATES SCREEN NEGATIVE; URINE BENZODIAZEPINES SCREEN NEGATIVE; URINE COCAINE SCREEN NEGATIVE; URINE METHADONE SCREEN NEGATIVE; URINE PHENCYCLIDINE SCREEN NEGATIVE
[2020-04-27 11:54] LABS: URINE MARIJUANA (THC) SCREEN UNCONFIRMED POSITIVE
[2020-04-27 14:22] VITALS: BP 123/68
--- NOTE | 2020-04-27 14:49 | PDOC DISCHARGE SUMMARY ---
Impression - Admit/DC Date/PCP Admission Date/Primary Care Provider: 04/27/20 09:08 FAVIOLA LAYTON PA-C Discharge Date: 04/27/20 - Discharge Diagnosis (1) demise > 22 weeks, delivered, current hospitalization Is this a current diagnosis for this admission?: Yes (2) Breech delivery Is this a current diagnosis for this admission?: Yes - Additional Information Discharge Diet: Regular Discharge Activity: Balance Activity w/Rest, Pelvic Rest Referrals: FAVIOLA LAYTON PA-C [Primary Care Provider] - Prescriptions: Lorazepam [Ativan 0.5 mg Tablet] 0.5 mg PO Q4HP PRN #30 tab PRN Reason: Ibuprofen [Motrin 800 mg Tablet] 800 mg PO Q8HP PRN #60 tablet PRN Reason: Home Medications: Ondansetron [Zofran Odt 4 mg Tablet] 1 - 2 tab PO Q4H PRN #15 tab.rapdis 10/06/19 Ibuprofen [Motrin 800 mg Tablet] 800 mg PO Q8HP PRN #60 tablet 04/27/20 Lorazepam [Ativan 0.5 mg Tablet] 0.5 mg PO Q4HP PRN #30 tab 04/27/20 Vit/Dha [ Multi + Dha Capsule] 1 cap PO DAILY capsule 04/27/20 Hospital Course 59. Maternal Morbidity (serious complications experinced by the mother associated with labor and delivery: None of the above Results Laboratory Results: WBC 14.7 10^3/uL (4.0-10.5) H 04/27/20 09:09 RBC 4.51 10^6/uL (3.72-5.28) 04/27/20 09:09 Hgb 13.5 g/dL (12.0-15.5) 04/27/20 09:09 Hct 39.1 % (36.0-47.0) 04/27/20 09:09 MCV 87 fl (80-97) 04/27/20 09:09 MCH 29.9 pg (27.0-33.4) 04/27/20 09:09 MCHC 34.5 g/dL (32.0-36.0) 04/27/20 09:09 RDW 15.0 % (11.5-14.0) H 04/27/20 09:09 Plt Count 304 10^3/uL (150-450) 04/27/20 09:09 Lymph % (Auto) 13.3 % (13-45) 04/27/20 09:09 Thomas % (Auto) 4.0 % (3-13) 04/27/20 09:09 Eos % (Auto) 0.2 % (0-6) 04/27/20 09:09 Baso % (Auto) 0.3 % (0-2) 04/27/20 09:09 Absolute Neuts (auto) 12.1 10^3/uL (1.7-8.2) H 04/27/20 09:09 Absolute Lymphs (auto) 2.0 10^3/uL (0.5-4.7) 04/27/20 09:09 Absolute Monos (auto) 0.6 10^3/uL (0.1-1.4) 04/27/20 09:09 Absolute Eos (auto) 0.0 10^3/uL (0.0-0.6) 04/27/20 09:09 Absolute Basos (auto) 0.0 10^3/uL (0.0-0.2) 04/27/20 09:09 Seg Neutrophils % 82.2 % (42-78) H 04/27/20 09:09 PT 12.2 SEC (11.4-15.4) 04/27/20 09:09 INR 0.88 04/27/20 09:09 APTT 26.9 SEC (23.5-35.8) 04/27/20 09:09 Sodium 136.0 mmol/L (137-145) L 04/27/20 09:16 Potassium 3.6 mmol/L (3.6-5.0) 04/27/20 09:16 Chloride 106 mmol/L (98-107) 04/27/20 09:16 Carbon Dioxide 16 mmol/L (22-30) L 04/27/20 09:16 Anion Gap 14 (5-19) 04/27/20 09:16 BUN 3 mg/dL (7-20) L 04/27/20 09:16 Creatinine 0.55 mg/dL (0.52-1.25) 04/27/20 09:16 Est GFR ( Amer) > 60 (>60) 04/27/20 09:16 Est GFR (MDRD) Non-Af > 60 (>60) 04/27/20 09:16 Glucose 166 mg/dL (75-110) H 04/27/20 09:16 Uric Acid 3.6 mg/dL (2.5-6.2) 04/27/20 09:16 Calcium 9.6 mg/dL (8.4-10.2) 04/27/20 09:16 Total Bilirubin 0.7 mg/dL (0.2-1.3) 04/27/20 09:16 Direct Bilirubin 0.3 mg/dL (0.0-0.4) 04/27/20 09:16 Neonat Total Bilirubin Not Reportable 04/27/20 09:16 Neonat Direct Bilirubin Not Reportable 04/27/20 09:16 Neonat Indirect Bili Not Reportable 04/27/20 09:16 AST 30 U/L (14-36) 04/27/20 09:16 ALT 17 U/L (<35) 04/27/20 09:16 Alkaline Phosphatase 114 U/L (38-126) 04/27/20 09:16 Lactate Dehydrogenase 242 U/L (120-246) 04/27/20 09:16 Total Protein 7.0 g/dL (6.3-8.2) 04/27/20 09:16 Albumin 3.9 g/dL (3.5-5.0) 04/27/20 09:16 Urine Color RED 04/27/20 10:19 Urine Appearance TURBID 04/27/20 10:19 Urine pH 6.0 (5.0-9.0) 04/27/20 10:19 Ur Specific [place] 1.025 04/27/20 10:19 Urine Protein >=500 mg/dL (NEGATIVE) H 04/27/20 10:19 Urine Glucose (UA) 150 mg/dL (NEGATIVE) H 04/27/20 10:19 Urine Ketones 20 mg/dL (NEGATIVE) H 04/27/20 10:19 Urine Blood LARGE (NEGATIVE) H 04/27/20 10:19 Urine Nitrite NEGATIVE (NEGATIVE) 04/27/20 10:19 Urine Bilirubin NEGATIVE (NEGATIVE) 04/27/20 10:19 Urine Urobilinogen NEGATIVE mg/dL (<2.0) 04/27/20 10:19 Ur Leukocyte Esterase TRACE (NEGATIVE) H 04/27/20 10:19 Urine WBC (Auto) 82 /HPF 04/27/20 10:19 Urine RBC (Auto) >182 /HPF 04/27/20 10:19 Urine Mucus (Auto) MANY /LPF 04/27/20 10:19 Urine Ascorbic Acid NEGATIVE (NEGATIVE) 04/27/20 10:19 Urine Opiates Screen NEGATIVE 04/27/20 10:19 Urine Methadone Screen NEGATIVE 04/27/20 10:19 Ur Barbiturates Screen NEGATIVE 04/27/20 10:19 Ur Phencyclidine Scrn NEGATIVE 04/27/20 10:19 Ur Amphetamines Screen NEGATIVE 04/27/20 10:19 U Benzodiazepines Scrn NEGATIVE 04/27/20 10:19 Urine Cocaine Screen NEGATIVE 04/27/20 10:19 U Marijuana (THC) Screen UNCONFIRMED POSITIVE 04/27/20 10:19 RPR NONREACTIVE (NONREACTIVE) 04/27/20 09:16 Blood Type A NEGATIVE 04/27/20 09:16 Antibody Screen NEGATIVE 04/27/20 09:16 Rhogam Indicated RHOGAM REQUESTED 04/27/20 09:16 Impressions: Obstetrics Ultrasound 04/27/20 08:48 IMPRESSION: No heart tones. Trimester of : Second trimester - 13 weeks 1 day to 27 weeks 6 days. Plan Plan of Treatment: follow up in 1-2 weeks for depression check following demise
--- NOTE | 2020-05-09 14:26 | Progress Note ---
Provider Note Provider Note: chorioamnionitis as reported by pathology
== END 2020-04-27 15:26 | disposition home or self-care (01) | DRG 831 ==
LOC: LC 08:30 → LR 09:08
PROVIDERS: ADMIT Obstetrics & Gynecology Gynecology; ATTEND Obstetrics & Gynecology Gynecology
PROC: 10E0XZZ Delivery of Products of Conception, External Approach (ICD-10-PCS; principal; 2020-04-27)
PROC: 10907ZC Drainage of Amniotic Fluid, Therapeutic from Products of Conception, Via Natural or Artificial Opening (ICD-10-PCS; 2020-04-27)
DX: O36.4XX0 Maternal care for intrauterine death, not applicable or unspecified (principal); O41.1230 Chorioamnionitis, third trimester, not applicable or unspecified; O32.1XX0 Maternal care for breech presentation, not applicable or unspecified; Z67.11 Type A blood, Rh negative; Z03.818 Encounter for observation for suspected exposure to other biological agents ruled out; O26.893 Other specified pregnancy related conditions, third trimester; Z3A.25 25 weeks gestation of pregnancy
CPT/HCPCS: 36415; 76815; 80053; 80307; 80349; 81001; 83615; 84550; 85025; 85610; 85730; 86592; 86850; 86900; 86901; 88307; G0480; J2300; J2405; J2550; J2590; J2790; J3490

== ENCOUNTER 2020-07-22 19:05 | Emergency (ER) | payer MEDICAID ==
[2020-07-22 19:58] VITALS: BP 116/75
[2020-07-22] MEDS ORDERED: METOCLOPRAMIDE HCL INJ/PF 10 MG/2 ML SDV IV ONE (20:31)
[2020-07-22] MEDS ORDERED: RINGERS SOLUTION,LACTATED 1,000 ML IV ONE (20:32)
--- NOTE | 2020-07-22 20:33 | ER Document Report ---
ED Medical Screen (RME) - General Chief Complaint: Abdominal Pain Stated Complaint: ABDOMINAL PAIN Time Seen by Provider: 07/22/20 20:29 Primary Care Provider: FAVIOLA LAYTON PA-C [Primary Care Provider] - Follow up as needed Mode of Arrival: Medic Information source: Patient Notes: HPI; 20-year-old female presents to the emergency room complaining of sharp stabbing generalized abdominal pain that started earlier today with nausea without vomiting. No fevers. No urinary symptoms. No ill contacts. No bad food that she is aware of. No COVID-19 exposure. States she tried taking Zofran and Tylenol without relief. PE: Alert and oriented x3. Lungs: Clear to auscultation without rales, rhonchi, wheezes. Heart: Regular rate rhythm without murmurs, rubs, gallops. I have greeted and performed a rapid initial assessment of this patient. A comprehensive ED assessment and evaluation of the patient, analysis of test results and completion of the medical decision making process will be conducted by additional ED providers. I have specifically instructed the patient or family members with the patient to immediately return to any nursing staff should anything change in the patient's condition or with their chief complaint. TRAVEL OUTSIDE OF THE [place] IN LAST 30 DAYS: No - Related Data Allergies/Adverse Reactions: haloperidol [From Haldol] Allergy (Verified 10/06/19 09:19) Past Medical History Neurological Medical History: Reports: Hx Seizures - WITH HALDOL WHEN GIVEN IN ER Renal/ Medical History: Denies: Hx Peritoneal Dialysis GI Medical History: Reports: Hx Gastroesophageal Reflux Disease, Hx Irritable Bowel, Hx Ulcer Psychiatric Medical History: Reports: Hx Anxiety, Hx Depression Past Surgical History: Reports: Hx Cholecystectomy, Other - Upper GI scope-2 esophogeal ulcerations measuring >5mm. Denies: Hx Hysterectomy - Immunizations Immunizations up to date: Yes Hx Diphtheria, Pertussis, Tetanus Vaccination: Yes Physical Exam - Vital signs Vitals: Temp Pulse Resp BP Pulse Ox 98.0 F 91 20 116/75 98 07/22/20 19:56 07/22/20 19:56 07/22/20 19:56 07/22/20 19:56 07/22/20 19:56 Course - Vital Signs Vital signs: Temp Pulse Resp BP Pulse Ox 98.0 F 91 20 116/75 98 07/22/20 19:56 07/22/20 19:56 07/22/20 19:56 07/22/20 19:56 07/22/20 19:56 Doctor's Discharge - Discharge Referrals: FAVIOLA LAYTON PA-C [Primary Care Provider] - Follow up as needed
== END 2020-07-22 20:55 | disposition left against medical advice (07) ==
LOC: ER 19:05
DX: R10.9 Unspecified abdominal pain (principal); R10.84 Generalized abdominal pain; R11.0 Nausea; Z79.899 Other long term (current) drug therapy; Z53.20 Procedure and treatment not carried out because of patient's decision for unspecified reasons
CPT/HCPCS: 99281